=== PATIENT | male | born 1985 | race African-American/Black ===

== ENCOUNTER 2022-06-03 06:56 | Day surgery (SDC) | payer OTHER ==
[~2022-06-03] VITALS: Ht 193 cm; Wt 104.8 kg
[2022-06-03] MEDS ORDERED: BUPIVACAINE-MPF 0.25% 30 ML VIAL INJ ONE (08:06)
[2022-06-03] MEDS ORDERED: LIDOCAINE 1% 500 MG/50 ML VIAL ONE (08:07)
[2022-06-03] MEDS ORDERED: HYDROGEN PEROXIDE 3% 240 ML BTL TP ONE (08:07)
[2022-06-03] MEDS ORDERED: BUPIVACAINE-MPF/EPI 0.25% 30 ML VIAL INJ ONE (09:46)
[2022-06-03] MEDS ORDERED: METOCLOPRAMIDE 10 MG/2 ML INJ VIAL ONE ×2 (09:51→10:36)
[2022-06-03] MEDS ORDERED: PROPOFOL 200 MG/20 ML VIAL IV ONE ×3 (09:51→10:36)
[2022-06-03] MEDS ORDERED: fentaNYL citrate 0.05 MG/ML VIAL ONE ×2 (09:51→09:59)
[2022-06-03] MEDS ORDERED: ONDANSETRON 4 MG/2 ML VIAL ONE ×2 (09:51→10:36)
[2022-06-03] MEDS ORDERED: SEVOFLURANE 250 ML BTL INH ONE (09:51)
[2022-06-03] MEDS ORDERED: KETOROLAC 30 MG/ML VIAL ONE ×2 (09:51→10:36)
[2022-06-03] MEDS ORDERED: DEXAMETHASONE 4 MG/ML VIAL ONE ×3 (09:51→10:36)
[2022-06-03] MEDS ORDERED: HYDROmorphone 1 MG/ML AMP IVP PRN (11:00)
[2022-06-03] MEDS ORDERED: ONDANSETRON 4 MG/2 ML VIAL IVP PRN (11:00)
[2022-06-03] MEDS ORDERED: LACTATED RINGERS 1,000 ML IV SCH (11:00)
[2022-06-03] MEDS ORDERED: LABETALOL 20 MG/4 ML VIAL IVP PRN (11:01)
[2022-06-03] MEDS ORDERED: hydrALAZINE 20 MG/ML VIAL IVP PRN (11:01)
[2022-06-03] MEDS ORDERED: ALBUTEROL HFA MDI 90 MCG/ACTUATION 8 GM INH ONE (11:07)
== END 2022-06-03 11:39 | disposition home or self-care (01) ==
LOC: MDS 06:56 → MMU 06:59 → MDS 11:39
PROVIDERS: ATTEND Surgery
DX: K60.0 Acute anal fissure (principal); Z20.822 Contact with and (suspected) exposure to COVID-19
CPT/HCPCS: 46080; 71045; 87426; 88304; J1100; J1885; J2001; J2405; J2704; J2765; J3010; J3490; J3535